=== PATIENT | female | born 1965 | race African-American/Black ===

== ENCOUNTER 2021-10-26 14:21 | Emergency (ER) | payer MEDICAID, OTHER ==
[~2021-10-26] VITALS: Ht 170.2 cm; Wt 86.3 kg
[2021-10-27 00:49] VITALS: BP 129/63
[2021-10-27] MEDS ORDERED: CYCL-839 PO (00:53)
[2021-10-27] MEDS ORDERED: KETOROLAC TROMETH 30 MG/ML 1ML VIAL IM ONE (01:00)
[2021-10-27] MEDS ORDERED: methylPREDNISolone SOD SUCC 125 MG/2 ML VL IM ONE (01:00)
== END 2021-10-27 01:18 | disposition home or self-care (01) ==
LOC: ER 14:21
DX: S33.5XXA Sprain of ligaments of lumbar spine, initial encounter (principal); M79.10 Myalgia, unspecified site; W01.0XXA Fall on same level from slipping, tripping and stumbling without subsequent striking against object, initial encounter; Y93.89 Activity, other specified; Y92.89 Other specified places as the place of occurrence of the external cause; Y99.8 Other external cause status
CPT/HCPCS: 72100; 72220; 96372; 99284; J1885; J2930

== ENCOUNTER 2022-01-22 11:52 | Inpatient (IN) | payer MEDICAID ==
[~2022-01-22] VITALS: Ht 170.2 cm; Wt 71.6 kg
[~2022-01-22 11:52] MED LIST: CYCL-839 PO
[2022-01-22 13:12] LABS: Basophils # (auto) 0 10 ^3/uL (0-0.2); Basophils % (auto) 0.9 % (0.0-2.0); Eosinophils # (auto) 0.1 10 ^3/uL (0-0.8); Eosinophils % (auto) 1.9 % (0.0-7.0); Hematocrit 40.4 % (36.0-46.0); Hemoglobin 13.2 g/dL (12.2-16.2); Lymphocytes # (auto) 0.9 10 ^3/uL (0.4-5.4); Lymphocytes % (auto) 22.9 % (10.0-50.0); Mean Corpuscular Hemoglobin 29.1 pg (28.0-32.0); Mean Corpuscular Hgb Conc. 32.8 g/dL (32.0-36.0); Mean Corpuscular Volume 88.8 fL (80.0-100.0); Monocytes # (auto) 0.3 10 ^3/uL (0-1.3); Monocytes % (auto) 7.6 % (0.0-12.0); Neutrophils # (auto) 2.6 10 ^3/uL (1.6-8.6); Neutrophils % (auto) 66.7 % (37.0-80.0); Nucleated Red Blood Cells % 0.4 %; Red Blood Cells 4.55 10^6/uL (4.0-5.20); Red Cell Distribution Width 14.7 % (11.8-14.3); White Blood Cell 3.9 10^3/uL (4.4-10.8)
[2022-01-22 13:41] LABS: Albumin 3.6 g/dL (3.4-5.0); BUN/Creatinine Ratio 14.4; Magnesium 2.1 mg/dL (1.6-2.6); Potassium 4.2 mmol/L (3.5-5.1)
[2022-01-22 13:44] LABS: Bilirubin, Total 0.4 mg/dL (0.2-1.0); Total Protein 6.5 g/dL (6.4-8.2)
[2022-01-22] MEDS ORDERED: IOHEXOL 350 MG/ML 100ML IJ ONE (14:13)
[2022-01-22] MEDS ORDERED: PARO10TA93 PO (18:14)
[2022-01-22] MEDS ORDERED: TIZA4TAB7 PO (18:14)
[2022-01-22] MEDS ORDERED: TOLT1CAP26 PO (18:14)
[2022-01-22] MEDS ORDERED: DOCUSATE SOD 100 MG CAP PO PRN (18:15)
[2022-01-22] MEDS ORDERED: ACETAMINOPHEN 325 MG TAB PO PRN (18:15)
[2022-01-22] MEDS ORDERED: NITROGLYCERIN 0.4 MG SL TAB SL PRN (18:15)
[2022-01-22] MEDS ORDERED: TEMAZEPAM 15 MG CAP PO PRN (18:15)
[2022-01-22] MEDS: SODIUM CHLORIDE 0.9% 1,000 ML IV SCH (18:15)
[2022-01-22] MEDS ORDERED: MORPHINE SULFATE INJ 2 MG/ml SYRG IV PRN (18:15)
[2022-01-22] MEDS ORDERED: ONDANSETRON HCL 4 MG/2 ML VIAL IV ONE (21:00)
[2022-01-22] MEDS ORDERED: MORPHINE SULFATE 4 MG/ML SYR/VIAL IV ONE (21:00)
[2022-01-23 06:28] LABS: Basophils # (auto) 0 10 ^3/uL (0-0.2); Basophils % (auto) 0.5 % (0.0-2.0); Eosinophils # (auto) 0.1 10 ^3/uL (0-0.8); Eosinophils % (auto) 1.9 % (0.0-7.0); Hematocrit 40.8 % (36.0-46.0); Hemoglobin 13.3 g/dL (12.2-16.2); Lymphocytes # (auto) 0.7 10 ^3/uL (0.4-5.4); Lymphocytes % (auto) 19.8 % (10.0-50.0); Mean Corpuscular Hemoglobin 28.4 pg (28.0-32.0); Mean Corpuscular Hgb Conc. 32.5 g/dL (32.0-36.0); Mean Corpuscular Volume 87.4 fL (80.0-100.0); Monocytes # (auto) 0.4 10 ^3/uL (0-1.3); Monocytes % (auto) 10.2 % (0.0-12.0); Neutrophils # (auto) 2.5 10 ^3/uL (1.6-8.6); Neutrophils % (auto) 67.6 % (37.0-80.0); Nucleated Red Blood Cells % 0.2 %; Red Blood Cells 4.66 10^6/uL (4.0-5.20); Red Cell Distribution Width 14.6 % (11.8-14.3); White Blood Cell 3.7 10^3/uL (4.4-10.8)
[2022-01-23 06:46] LABS: Albumin 3.7 g/dL (3.4-5.0); Calcium 9.1 mg/dL (8.5-10.1)
[2022-01-23 06:49] LABS: BUN/Creatinine Ratio 17.9; Bilirubin, Total 0.8 mg/dL (0.2-1.0); Total Protein 6.8 g/dL (6.4-8.2)
[2022-01-23] MEDS: SODIUM CHLORIDE 0.9% 1,000 ML IV SCH (11:13)
[2022-01-23] MEDS: PANTOPRAZOLE 40 MG TAB PO SCH (11:17)
[2022-01-23] MEDS: ENOXAPARIN SOD 40 MG/0.4 ML SYRINGE SC SCH (11:17)
[2022-01-23] MEDS: PARoxetine 20 MG TAB PO SCH (11:17)
[2022-01-23] MEDS: HYDROcodone-ACET 5/325MG TAB PO PRN ×2 (11:49→16:59)
[2022-01-23] MEDS: ALPRAZolam 0.5 MG TAB PO PRN (15:26)
[2022-01-23] MEDS: FUROSEMIDE 40 MG/4 ML VIAL IV SCH (20:33)
[2022-01-23] MEDS: MORPHINE SULFATE INJ 2 MG/ml SYRG IV PRN (20:46)
[2022-01-23 22:00] VITALS: BP 139/88
[2022-01-23 22:08] VITALS: BP 139/88
[2022-01-24] VITALS (11 sets, daily range): BP systolic 119–146; BP diastolic 79–101
[2022-01-24] MEDS: ALPRAZolam 0.5 MG TAB PO PRN ×3 (00:20→23:02)
[2022-01-24] MEDS: SODIUM CHLORIDE 0.9% 1,000 ML IV SCH (03:45)
[2022-01-24 06:17] LABS: INR 1.09 (0.9-1.15); Partial Thromboplastin Time 27.3 sec (24.6-33.4)
[2022-01-24] MEDS: MORPHINE SULFATE INJ 2 MG/ml SYRG IV PRN (06:50)
[2022-01-24] MEDS: FUROSEMIDE 40 MG/4 ML VIAL IV SCH ×2 (06:50→07:49)
[2022-01-24] MEDS ORDERED: ANGIOMAX 250 MG VIAL IV ONE (08:39)
[2022-01-24] MEDS ORDERED: SODIUM CHL 0.9% 0 ML ONE (08:40)
[2022-01-24] MEDS ORDERED: HEPARIN SODIUM (PORCINE) 5000 UNITS/ML 1ML VIAL ONE (08:40)
[2022-01-24] MEDS ORDERED: fentaNYL CITRATE 100 MCG/2 ML VL ONE (08:40)
[2022-01-24] MEDS ORDERED: VERAPAMIL 2.5MG/ML INJ 2ML VIAL IV ONE (08:40)
[2022-01-24] MEDS ORDERED: LIDOCAINE 2%HCL (LOCAL ANESTH.) INJ 10ml MDV ONE (08:40)
[2022-01-24] MEDS ORDERED: IODIXANOL 320MG/ML 100ML BTL IV ONE (08:40)
[2022-01-24] MEDS ORDERED: MIDAZOLAM HCL 2MG/2ML 2ml VIAL (1mg/ml) ONE (08:40)
[2022-01-24] MEDS: HYDROcodone-ACET 5/325MG TAB PO PRN ×3 (09:53→21:34)
[2022-01-24] MEDS: ENOXAPARIN SOD 40 MG/0.4 ML SYRINGE SC SCH (10:00)
[2022-01-24] MEDS: POTASSIUM CHL 10 Meq TABLET PO SCH (11:14)
[2022-01-24] MEDS: PARoxetine 20 MG TAB PO SCH (11:14)
[2022-01-24] MEDS: PANTOPRAZOLE 40 MG TAB PO SCH (11:14)
[2022-01-24] MEDS: CARVEDILOL 3.125 MG TAB PO SCH ×2 (11:15→21:28)
[2022-01-24] MEDS: SACUBITRIL-VALSARTAN 24mg/26mg TAB PO SCH ×2 (11:15→21:27)
[2022-01-24] MEDS: ONDANSETRON HCL 4 MG/2 ML VIAL IV PRN (23:57)
[2022-01-25] MEDS: HYDROcodone-ACET 5/325MG TAB PO PRN (04:08)
[2022-01-25] MEDS: SODIUM CHLORIDE 0.9% 1,000 ML IV SCH ×2 (04:08→12:55)
[2022-01-25 05:00] VITALS: BP 131/88
[2022-01-25] MEDS: EMPAGLIFLOZIN 10 MG TAB PO SCH (06:22)
[2022-01-25 07:59] LABS: Basophils # (auto) 0 10 ^3/uL (0-0.2); Basophils % (auto) 0.4 % (0.0-2.0); Eosinophils # (auto) 0 10 ^3/uL (0-0.8); Eosinophils % (auto) 0.3 % (0.0-7.0); Hemoglobin 14.8 g/dL (12.2-16.2); Lymphocytes # (auto) 0.5 10 ^3/uL (0.4-5.4); Lymphocytes % (auto) 11.4 % (10.0-50.0); Mean Corpuscular Hemoglobin 28.7 pg (28.0-32.0); Mean Corpuscular Hgb Conc. 32.9 g/dL (32.0-36.0); Mean Corpuscular Volume 87.3 fL (80.0-100.0); Monocytes # (auto) 0.2 10 ^3/uL (0-1.3); Monocytes % (auto) 3.6 % (0.0-12.0); Neutrophils # (auto) 3.8 10 ^3/uL (1.6-8.6); Neutrophils % (auto) 84.3 % (37.0-80.0); Nucleated Red Blood Cells % 0.1 %; Red Blood Cells 5.16 10^6/uL (4.0-5.20); Red Cell Distribution Width 14.1 % (11.8-14.3); White Blood Cell 4.5 10^3/uL (4.4-10.8)
[2022-01-25 08:19] LABS: Albumin 3.6 g/dL (3.4-5.0); Calcium 9.1 mg/dL (8.5-10.1); Potassium 4.3 mmol/L (3.5-5.1)
[2022-01-25 08:23] LABS: Bilirubin, Total 0.6 mg/dL (0.2-1.0); Total Protein 7.3 g/dL (6.4-8.2)
[2022-01-25 08:30] VITALS: BP 177/63
[2022-01-25 08:59] LABS: BUN/Creatinine Ratio 18.2
[2022-01-25] MEDS: FUROSEMIDE 40 MG/4 ML VIAL IV SCH (09:38)
[2022-01-25] MEDS: ENOXAPARIN SOD 40 MG/0.4 ML SYRINGE SC SCH (09:39)
[2022-01-25] MEDS: SACUBITRIL-VALSARTAN 24mg/26mg TAB PO SCH ×2 (09:39→21:07)
[2022-01-25] MEDS: CARVEDILOL 3.125 MG TAB PO SCH ×2 (09:39→21:07)
[2022-01-25] MEDS: PANTOPRAZOLE 40 MG TAB PO SCH (09:40)
[2022-01-25] MEDS: SPIRONOLACTONE 25 MG TAB PO SCH (09:40)
[2022-01-25] MEDS: POTASSIUM CHL 10 Meq TABLET PO SCH (09:40)
[2022-01-25] MEDS: PARoxetine 20 MG TAB PO SCH (09:41)
[2022-01-25] MEDS: ALPRAZolam 0.5 MG TAB PO PRN ×2 (11:29→21:14)
[2022-01-25 12:20] VITALS: BP 134/88
[2022-01-25 16:20] VITALS: BP 129/75
[2022-01-25] MEDS: ONDANSETRON HCL 4 MG/2 ML VIAL IV PRN (20:18)
[2022-01-25 22:00] VITALS: BP 120/70
[2022-01-26] MEDS: SODIUM CHLORIDE 0.9% 1,000 ML IV SCH ×2 (04:40→22:10)
[2022-01-26 05:00] VITALS: BP 117/83
[2022-01-26] MEDS: EMPAGLIFLOZIN 10 MG TAB PO SCH (06:17)
[2022-01-26] MEDS: ONDANSETRON HCL 4 MG/2 ML VIAL IV PRN ×3 (06:17→20:54)
[2022-01-26] MEDS: ALPRAZolam 0.5 MG TAB PO PRN ×2 (06:18→20:55)
[2022-01-26 09:00] VITALS: BP 115/77
[2022-01-26] MEDS: CARVEDILOL 3.125 MG TAB PO SCH ×2 (09:47→21:02)
[2022-01-26] MEDS: SACUBITRIL-VALSARTAN 24mg/26mg TAB PO SCH ×2 (09:47→21:02)
[2022-01-26] MEDS: FUROSEMIDE 40 MG/4 ML VIAL IV SCH (09:47)
[2022-01-26] MEDS: SPIRONOLACTONE 25 MG TAB PO SCH (09:47)
[2022-01-26] MEDS: PARoxetine 20 MG TAB PO SCH (09:48)
[2022-01-26] MEDS: PANTOPRAZOLE 40 MG TAB PO SCH (09:48)
[2022-01-26] MEDS: ENOXAPARIN SOD 40 MG/0.4 ML SYRINGE SC SCH (09:48)
[2022-01-26] MEDS: POTASSIUM CHL 10 Meq TABLET PO SCH (09:48)
[2022-01-26] MEDS: HYDROcodone-ACET 5/325MG TAB PO PRN ×2 (09:59→16:24)
[2022-01-26] MEDS ORDERED: SACU1TAB PO (12:49)
[2022-01-26] MEDS ORDERED: SPIR25TA PO (12:49)
[2022-01-26] MEDS ORDERED: FURO40TA4 PO (12:49)
[2022-01-26] MEDS ORDERED: CAR3125T PO (12:49)
[2022-01-26] MEDS ORDERED: EMPA1TAB PO (12:49)
[2022-01-26 13:00] VITALS: BP 117/79
[2022-01-26 17:00] VITALS: BP 134/92
[2022-01-26 22:00] VITALS: BP 118/82
[2022-01-27] MEDS: HYDROcodone-ACET 5/325MG TAB PO PRN ×2 (01:28→12:27)
[2022-01-27 05:00] VITALS: BP 120/79
[2022-01-27] MEDS: EMPAGLIFLOZIN 10 MG TAB PO SCH (06:22)
[2022-01-27 08:00] VITALS: BP 129/80
[2022-01-27] MEDS: ONDANSETRON HCL 4 MG/2 ML VIAL IV PRN (08:39)
[2022-01-27] MEDS: ALPRAZolam 0.5 MG TAB PO PRN ×2 (08:39→15:49)
[2022-01-27] MEDS: FUROSEMIDE 40 MG/4 ML VIAL IV SCH (09:21)
[2022-01-27] MEDS: SPIRONOLACTONE 25 MG TAB PO SCH (09:22)
[2022-01-27] MEDS: CARVEDILOL 3.125 MG TAB PO SCH (09:22)
[2022-01-27] MEDS: SACUBITRIL-VALSARTAN 24mg/26mg TAB PO SCH (09:22)
[2022-01-27] MEDS: POTASSIUM CHL 10 Meq TABLET PO SCH (09:34)
[2022-01-27] MEDS: PARoxetine 20 MG TAB PO SCH (09:35)
[2022-01-27] MEDS: PANTOPRAZOLE 40 MG TAB PO SCH (09:35)
[2022-01-27] MEDS: ENOXAPARIN SOD 40 MG/0.4 ML SYRINGE SC SCH (09:35)
[2022-01-27 12:00] VITALS: BP 127/79
[2022-01-27 12:11] VITALS: BP 126/79
[2022-01-27 12:33] VITALS: BP 126/79
[2022-01-27 12:35] LABS: BUN/Creatinine Ratio 19.2; Potassium 4.2 mmol/L (3.5-5.1)
[2022-01-27 12:36] LABS: Albumin 3.5 g/dL (3.4-5.0); Bilirubin, Total 0.6 mg/dL (0.2-1.0); Calcium 9.2 mg/dL (8.5-10.1); Magnesium 2.2 mg/dL (1.6-2.6); Total Protein 7.4 g/dL (6.4-8.2)
[2022-01-27] MEDS: SODIUM CHLORIDE 0.9% 1,000 ML IV SCH (14:55)
== END 2022-01-27 16:24 | disposition home or self-care (01) | DRG 192 ==
LOC: ER 11:52 → TELE 18:13 → TELE-CENTR 01-23 18:38 → UNDODISIN 01-27 16:24
PROVIDERS: ADMIT Nurse Practitioner; ATTEND Nurse Practitioner
PROC: 4A023N7 Measurement of Cardiac Sampling and Pressure, Left Heart, Percutaneous Approach (ICD-10-PCS; principal; 2022-01-24)
PROC: B211YZZ Fluoroscopy of Multiple Coronary Arteries using Other Contrast (ICD-10-PCS; 2022-01-24)
PROC: B215YZZ Fluoroscopy of Left Heart using Other Contrast (ICD-10-PCS; 2022-01-24)
DX: I11.0 Hypertensive heart disease with heart failure (principal); I42.8 Other cardiomyopathies; I24.9 Acute ischemic heart disease, unspecified; I25.10 Atherosclerotic heart disease of native coronary artery without angina pectoris; I50.21 Acute systolic (congestive) heart failure; E07.9 Disorder of thyroid, unspecified; F17.210 Nicotine dependence, cigarettes, uncomplicated; F41.0 Panic disorder [episodic paroxysmal anxiety]; I07.1 Rheumatic tricuspid insufficiency; I49.3 Ventricular premature depolarization; R07.9 Chest pain, unspecified; J98.11 Atelectasis; N20.0 Calculus of kidney; Z20.822 Contact with and (suspected) exposure to COVID-19; E04.1 Nontoxic single thyroid nodule; Z82.49 Family history of ischemic heart disease and other diseases of the circulatory system; Z90.710 Acquired absence of both cervix and uterus
CPT/HCPCS: 36415; 71046; 71275; 76536; 80053; 83605; 83735; 83880; 84484; 85025; 85379; 85610; 85730; 86850; 86900; 86901; 87040; 87426; 87804; 93005; 93306; 93970; 99152; G0378; J2001; J2250; J2405; Q9967